=== PATIENT | female | born 1955 | race African-American/Black ===

== ENCOUNTER → 2016-06-16 | Outpatient (CLI) | payer SELFPAY ==
[~2016-06-16] MED LIST: CITALOPRAM HBR40 M1 PO; CITALOPRAM HBR40 MG PO; CLARITIN10 M2 PO; ESTRACE2 M1 PO; MAXZIDE 37.5 M1 EACH PO; METFORMIN HCL500 M1 PO; PROVERA5 MG PO; TRIAMTERENE-HC1 EACH PO; VITAMIN D250000 UNIT PO
== END | disposition home or self-care (01) ==
LOC: CBAR 06:40
DX: E66.01 Morbid (severe) obesity due to excess calories (principal)
CPT/HCPCS: 76000

== ENCOUNTER → 2016-06-16 | Outpatient (CLI) | payer OTHER ==
[2016-06-16 15:22] LABS: CHOLESTEROL 202 mg/dL (0-200); GLUCOSE FASTING 102 mg/dL (70-110); HDL CHOLESTEROL 60 mg/dL (35-95); LDL CHOLESTEROL 126 mg/dL (-130); LDL/HDL RATIO 2 RATIO (0-4); TRIGLYCERIDES 78 mg/dL (10-160)
== END | disposition home or self-care (01) ==
LOC: CLAB 14:29
PROVIDERS: Surgery
DX: E66.01 Morbid (severe) obesity due to excess calories (principal)
CPT/HCPCS: 36415; 80061; 82947